=== PATIENT | female | born 2000 | race Caucasian/White ===

== ENCOUNTER 2020-12-02 17:43 | Emergency (ER) | payer MEDICAID ==
[~2020-12-02] VITALS: Ht 154.9 cm; Wt 62.8 kg
[2020-12-02 18:22] VITALS: BP 122/75
== END 2020-12-02 19:24 | disposition home or self-care (01) ==
LOC: ER 17:45
DX: R00.2 Palpitations (principal); R00.0 Tachycardia, unspecified
CPT/HCPCS: 93005; 99283

== ENCOUNTER 2021-05-21 14:44 | Emergency (ER) | payer MEDICAID ==
[~2021-05-21] VITALS: Ht 152.4 cm; Wt 65.0 kg
[2021-05-21 14:50] VITALS: BP 103/71
[2021-05-21] MEDS ORDERED: AMOX500C2 PO (17:21)
[2021-05-21] MEDS ORDERED: amoxicillin 250mg capsule PO ONE (17:25)
[2021-05-21] MEDS ORDERED: tetanus & diphtheria toxoid (Td) vaccine 0.5ml IMVAC ONE (17:45)
[2021-05-21] MEDS ORDERED: TETANUS IMMUNE GLOBULIN 250 UNIT IMVAC ONE (17:50)
[2021-05-21] MEDS ORDERED: TETanus/Pertussis (Acell)/Diphther VAC/PF (Tdap-Adult) 0.5ml syringe IMVAC ONE (17:50)
== END 2021-05-21 18:08 | disposition home or self-care (01) ==
LOC: ER 14:45
DX: H00.11 Chalazion right upper eyelid (principal); Z79.2 Long term (current) use of antibiotics
CPT/HCPCS: 90471; 90715; 99283; J1670